=== PATIENT | male | born 1990 | race Caucasian/White ===

== ENCOUNTER → 2020-10-06 15:32 | Outpatient (CLI) | payer OTHER, SELFPAY ==
[2014-12-29 21:24] VITALS: BMI 29.8
--- NOTE | 2020-10-06 15:39 | RAD_ITS ---
STUDY: X-RAY - LEFT WRIST REASON FOR EXAM: Male, 30 years old. Wrist pain. TECHNIQUE: 3 view(s) of the wrist were obtained. COMPARISON: None. FINDINGS: Normal visualized distal radius and ulna. Normal radiocarpal articulation. Normal distal radioulnar articulation. Normal carpal bones. Normal carpal articulations. Normal carpometacarpal articulation of the thumb. Normal second through fifth carpometacarpal articulations. Normal visualized metacarpal bones. The soft tissue structures are unremarkable. RAD/Wrist min 3 Views IMPRESSION: Normal x-ray examination of the wrist. Electronically Signed: Henry Olson MD at 14:34 EDT , Service support ,
--- NOTE | 2020-10-06 15:39 | RAD_ITS ---
STUDY: X-RAY - LEFT HAND REASON FOR EXAM: Male, 30 years old. Pain. TECHNIQUE: 3 view(s) of the hand. COMPARISON: None. FINDINGS: Normal radiocarpal articulation. Normal distal radioulnar joint. Normal visualized carpal bones. Normal carpal articulations Normal carpometacarpal articulation of the thumb. Normal second through fifth carpometacarpal joints. Normal metacarpi. Normal metacarpophalangeal joint of the thumb. Normal interphalangeal joint of the thumb. Normal proximal and distal phalanges of the thumb. Normal metacarpophalangeal joints of the second through fifth fingers. Normal proximal and distal interphalangeal joints of the second through fifth fingers. Normal phalanges of the second through fifth fingers. The soft tissue structures are unremarkable. RAD/Hand Min 3 Views IMPRESSION: Normal x-ray examination of the hand. Electronically Signed: Henry Olson MD at 14:34 EDT , Service support ,
== END ==
PROVIDERS: PCP Family Medicine; Referring Provider Family Medicine; Visit Provider Family Medicine
DX: M25.532 Pain in left wrist (principal)
CPT/HCPCS: 73110; 73130

== ENCOUNTER → 2022-10-06 | Outpatient (CLI) | payer OTHER, SELFPAY ==
[2022-10-06 10:54] LABS: Erythrocyte Sedimentation Rate < 1 mm/hr (0-20)
[2022-10-06 10:56] LABS: Absolute Neutrophil Count 3.2 X10^3/uL (2.0-7.7); Basophil# 0.04 X10^3/uL; Basophil% 0.7 % (0-1); Eosinophil# 0.05 X10^3/uL; Eosinophils% 0.9 % (0-5); Hematocrit 50.6 % (40-54); Hemoglobin 17.1 g/dL (13.0-16.5); Lymphocyte % 35.9 % (19-41); Mean Corp Hgb Conc 33.8 g/dL (32-36); Mean Corpuscular Hgb 28.5 pg (27.0-32.0); Mean Corpuscular Volume 84.3 fL (80-94); Monocyte# 0.46 X10^3/uL; Monocyte% 7.9 % (0-10); NRBC Flagged by Analyzer 0 % (0-5); Neutrophil # 3.19 X10^3/uL (2.7-7.7); Neutrophil % 54.4 % (47-70); Platelet Count 211 K/mm3 (150-450); RBC Distribution Width CV 12.8 % (11.6-14.6); RBC Distribution Width SD 39.2 fl (35.1-43.9); White Blood Count 5.9 K/mm3 (4.4-11.0)
[2022-10-06 11:09] LABS: ALB/GLOB Ratio 1.3 RATIO (0.9-2.4); AST(SGOT) 53 U/L (15-37); Alanine Aminotransfer ALT/SGPT 90 U/L (16-61); Albumin, Serum 4.4 g/dL (3.2-5.0); Alkaline Phosphatase 92 U/L (45-117); Anion Gap 2 (5-15); BUN 16 mg/dL (7-18); BUN/Creat Ratio 15.2 RATIO (10-20); Calcium,Total 9.1 mg/dL (8.5-10.1); Chloride 105 mmol/L (98-107); Cholesterol 163 mg/dL (200); Creatinine, Serum 1.05 mg/dL (0.70-1.30); EST Glomerular Filtration Rate 88 mL/min (>60); Est Glom Filt Rate - Afr Amer 106 mL/min (>60); Globulin 3.4 g/dL (2.2-4.2); Glucose 94 mg/dL (74-106); High Density Lipoprotein 36 mg/dL; Potassium 3.7 mmol/L (3.5-5.1); Protein, Total 7.8 g/dL (6.4-8.2); Sodium Level 137 mmol/L (136-145); Thyroid Stim Hormone (TSH) 1.68 uIU/mL (0.358-3.74); Triglycerides 141 mg/dL; Very Low Density Lipoprotein 28 mg/dL (5-40)
[2022-10-06 11:11] LABS: Amphetamine Urine VISTA NEGATIVE (<1000 ng/mL); Barbiturate Urine VISTA NEGATIVE (< 200 ng/mL); Benzodiazepine Urine VISTA NEGATIVE (< 200 ng/mL); Cocaine Urine VISTA NEGATIVE (< 300 ng/mL); Ecstacy Urine VISTA NEGATIVE (< 500 ng/mL); Methadone Urine VISTA NEGATIVE (< 300 ng/mL); PCP Urine VISTA NEGATIVE (< 25 ng/mL); THC Urine VISTA NEGATIVE (< 50 ng/mL); Vista UDS pH Range 7
== END | disposition home or self-care (01) ==
LOC: MFPLAB 08:37
PROVIDERS: PCP Family Medicine; Referring Provider Family Medicine; Visit Provider Family Medicine
DX: G45.4 Transient global amnesia (principal)
CPT/HCPCS: 36415; 80053; 80061; 80307; 84443; 85025; 85652

== ENCOUNTER → 2023-02-04 | Outpatient (CLI) | payer OTHER, SELFPAY | END | disposition home or self-care (01) | PROVIDERS: PCP Family Medicine; Referring Provider Family Medicine; Visit Provider Family Medicine | DX: G45.4 Transient global amnesia (principal) | CPT/HCPCS: 95819 ==

== ENCOUNTER → 2023-08-29 | Outpatient (CLI) | payer OTHER, SELFPAY ==
--- OUTSIDE RECORDS SUMMARY | 2023-08-29 08:49 | XMS RPT_ITS | CCD ---
Author Name Unknown Address [address] [place] [address] Organization [facility] Care Team Providers Care Commercial [facility] Manager Name Role Phone Wayne Henderson MD Primary Care Provider Jaqueline Galeano MD Primary Care Provider JAQUELINE GALEANO Primary Care UnavailJAQUELINE Moore Referring JAQUELINE Freeman Primary Care Unavailabl e Medications Current Medications Medication Drug Class(es) Dates Sig (Normalized) Sig (Original) ondansetron 4 mg disintegrating oral tablet (1 source) Serotonin-3 Receptor Antagonist Start: 08-09-2022 End: 08-16-2022 take 1 tablet by mouth every eight hours as needed for nausea ondansetron orally disintegrating (ZOFRAN ODT) 4 mg disintegrating tablet Indications: Nausea and vomiting, unspecified vomiting type Take 1 tablet by mouth every 8 hours as needed for nausea/vomiting for up to 7 days. 21 tablet 0 08/09/2022 08/16/2022 Active Completed/Discontinued Medications Medication Drug Class(es) Dates Sig (Normalized) Sig (Original) lamoTRIgine 25 mg oral tablet (1 source) Mood Stabilizer, Anti-epileptic Agent Start: 08-02-2023 lamoTRIgine (LAMICTAL) 25 mg tablet Problems Problem Classification Problem Date Documented Da te Episodic/Chronic Inflammation; infection of eye (except that caused by tuberculosis or sexually transmitteddisease) (1 source) Acute conjunctivitis of bilateral eyes; Translations: [Unspecified acute conjunctivitis, bilateral] 08-10-2023 Episodic Nausea and vomiting (2 sources) Nausea; Translations: [Nausea] Episodic Other upper respiratory infections (1 source) Sore throat symptom; Translations: [Acute pharyngitis, unspecified] Episodic Results Test Name Value Interpretation Reference Range Facil ity Vital Signs Date Time Vital Sign Value Performing Clinician Jani harp 08-10-2023 07:44-0500 Body temperature 97.59 [degF] Ang Gardner MD Work Phone: [facility] 08-10-2023 07:44-0500 Body weight 109.86 kg Ang Gardner MD Work Phone: [facility] 08-10-2023 07:44-0500 Diastolic blood pressure 78 mm[Hg] Ang Gardner MD Work Phone: [facility] 08-10-2023 07:44-0500 Heart rate 65 /min Ang Gardner MD Work Phone: [facility] 08-10-2023 07:44-0500 Respiratory rate 16 /min Ang Gardner MD Work Phone: [facility] 08-10-2023 07:44-0500 SaO2% (BldA) [Mass fraction] 96 % Ang Gardner MD Work Phone: [facility] 08-10-2023 07:44-0500 Systolic blood pressure 112 mm[Hg] Ang Gardner MD Work Phone: [facility] 08-09-2022 08:27-0500 Body temperature 98.1 [degF] Maria Esther Orellana APRN.PRESSURE TESTER OPERATOR Work Phone: [facility] 08-09-2022 08:27-0500 Body weight 102.97 kg Maria Esther Orellana APRN.PRESSURE TESTER OPERATOR Work Phone: [facility] 08-09-2022 08:27-0500 Diastolic blood pressure 82 mm[Hg] Maria Esther Orellana APRN.PRESSURE TESTER OPERATOR Work Phone: [facility] 08-09-2022 08:27-0500 Heart rate 86 /min Maria Esther Orellana APRN.PRESSURE TESTER OPERATOR Work Phone: [facility] 08-09-2022 08:27-0500 Respiratory rate 18 /min Maria Esther Orellana APRN.PRESSURE TESTER OPERATOR Work Phone: [facility] 08-09-2022 08:27-0500 SaO2% (BldA) [Mass fraction] 98 % Maria Esther Orellana APRN.PRESSURE TESTER OPERATOR Work Phone: [facility] 08-09-2022 08:27-0500 Systolic blood pressure 116 mm[Hg] Maria Esther Orellana APRN.CNP Work Phone: [facility] Encounters Encounter Date Encounter Type Care Provider Facility Start: 08-10-2023 End: 08-10-2023 ambulatory JAQUELINE GALEANO Facility:[facility] Start: 08-10-2023 End: 08-10-2023 Patient encounter procedure Ang Gardner MD Work Phone: [facility] Procedures Date Procedure Procedure Detail Performing Clinician Start: 08-09-2022 STREP A MOLECULAR (POC) Maria Esther Orellana APRN.PRESSURE TESTER OPERATOR Work Phone: Plan of Treatment Date Care Activity Detail Author Start: 09-02-2029 Urine microalbumin profile DTa P,Tdap,Td Vaccine (10 - Td or Tdap) [facility] Start: 01-10-2024 Urine microalbumin profile DTA P,TDAP,TD (7 - Td or Tdap) [facility] Start: 06-27-2023 Depression Assessment Depression Ass [facility] Start: 2023 Covid-19 Vaccine ( season) Covid-19 Vaccine ( season) [facility] Start: 2023 Influenza vaccination Influenza Vacc ine (#1) [facility] Start: 06-27-2022 [facility] Start: 2022 Influenza vaccination INFLUENZA (#1) [facility] Start: 12-16-2020 COVID-19 VACCINE (3 - Booster for Pfizer series) COVID-19 VACCINE (3 - Booster for Pfizer series) [facility] Start: 02-24-2010 HEPATITIS C SCREENING HEPATITIS C [facility] Start: 02-24-2010 Hepatitis C screening Hepatitis C [facility] Start: 02-24-2010 HIV SCREENING HIV SCREENING [facility] Start: 02-24-2010 HIV screening HIV Screening [facility] Immunizations Immunization Date Immunization Notes Care Provider Fa cility 01-09-2014 tetanus toxoid, redu godfrey diphtheria toxoid, and acellular pertussis vaccine, adsorbed Maria Esther Orellana APRN.[facility] Work Phone: [facility] Work Phone: 01-07-2011 hepatitis B vaccine, adult dosage Maria Esther Orellana APRN.PRESSURE TESTER OPERATOR Work Phone: [facility] Work Phone: 12-16-2004 measles virus vaccine Frankini bang Orellana APRN.PRESSURE TESTER OPERATOR Work Phone: [facility] Work Phone: 03-15-1997 trivalent poliovirus vaccine, live, oral Maria Esther Orellana APRN.[facility] Work Phone: [facility] Work Phone: 12-27-1996 varicella virus vaccine Racquel kathy Orellana APRN.[facility] Work Phone: [facility] Work Phone: 12-13-1996 diphtheria, tetanus toxoids and acellular pertussis vaccine Maria Esther Orellana APRN.PRESSURE TESTER OPERATOR Work Phone: [facility] Work Phone: 09-04-1993 diphtheria, tetanus toxoids and acellular pertussis vaccine Maria Esther Orellana APRN.PRESSURE TESTER OPERATOR Work Phone: [facility] Work Phone: 09-04-1993 trivalent poliovirus vaccine, live, oral Maria Esther Orellana APRN.PRESSURE TESTER OPERATOR Work Phone: [facility] Work Phone: 06-16-1993 measles virus vaccine Frankini bang Orellana APRN.PRESSURE TESTER OPERATOR Work Phone: [facility] Work Phone: 06-16-1993 mumps virus vaccine Claire Orellana APRN.PRESSURE TESTER OPERATOR Work Phone: [facility] Work Phone: 06-16-1993 rubella virus vaccine Frankini bang Orellana APRN.PRESSURE TESTER OPERATOR Work Phone: [facility] Work Phone: 05-28-1993 haemophilus influenz ae type b vaccine, HbOC conjugate Maria Estherbang Orellana APRN.[facility] Work Phone: [facility] Work Phone: 04-11-1993 hepatitis B vaccine, pediatric or pediatric/adolescent dosage Maria Esther Esteban JAVA CONSULTANT.[facility] Work Phone: [facility] Work Phone: 1992 hepatitis B vaccine, pediatric or pediatric/adolescent dosage Maria Esther Esteban JAVA CONSULTANT.[facility] Work Phone: [facility] Work Phone: 1992 diphtheria, tetanus toxoids and pertussis vaccine Maria Estherbang Orellana APRN.[facility] Work Phone: [facility] Work Phone: 1992 haemophilus influenz ae type b vaccine, HbOC conjugate Maria Estherbang Orellana APRN.[facility] Work Phone: [facility] Work Phone: 1992 diphtheria, tetanus toxoids and pertussis vaccine Maria Estherbang Orellana APRN.[facility] Work Phone: [facility] Work Phone: 1992 trivalent poliovirus vaccine, live, oral Maria Estherbang Orellana APRN.[facility] Work Phone: [facility] Work Phone: 1992 haemophilus influenz ae type b vaccine, HbOC conjugate Maria Estherbang Orellana APRN.PRESSURE TESTER OPERATOR Work Phone: [facility] Work Phone: 1992 diphtheria, tetanus toxoids and pertussis vaccine Maria Estherbang Orellana APRN.[facility] Work Phone: [facility] Work Phone: 1992 haemophilus influenz ae type b vaccine, HbOC conjugate Maria Esther James JAVA CONSULTANT.[facility] Work Phone: [facility] Work Phone: 1992 trivalent poliovirus vaccine, live, oral Maria Esther Orellana APRN.PRESSURE TESTER OPERATOR Work Phone: [facility] Work Phone: 1992 hepatitis B vaccine, pediatric or pediatric/adolescent dosage Maria Esther Orellana APRN.PRESSURE TESTER OPERATOR Work Phone: [facility] Work Phone: Payers Date Payer Category Payer Private Health Insurance [employer] [id number] 2022-Present [phone] [address] [place] [address] Open Access [id number] 2022 Private Health Insurance [id number] Social History Date Type Detail Facility Start: 08-09-2022 [facility] Never smoked tobacco [facility] Start: 08-09-2022 Tobacco use and exposure Smoke less tobacco non-user [facility] Start: 08-09-2022 End: 08-10-2023 Alcohol intake Current drinker of alcohol (finding) [facility] Start: 1990 Sex Assigned At Not on file [facility] Start: 06-03-2020 End: 08-10-2023 History of Social function [facility] Start: 06-03-2020 End: 08-10-2023 Tobacco use panel [facility] National Score (1-10 0), lower number is lower risk Not on file [facility] Progress note 08-10-2023 Note Date & Type Note Facility 08-10-2023 Note HNO ID: [id number] Author: ANG GARDNER MD Service: ? Author Type: Physician Type: Progress Notes Filed: 08/10/2023 08:15 Note Text: Patient presents with: Eye Problem: Bilateral red and irritated eyes x 1 day HPI: Feeling eye irritation since last night. Toddler had pink eye last week. Positive symptoms: eye irritation (R>L), AM crust, rhinorrhea, Negative symptoms: Cough, Sore throat, Nasal Congestion, Fever, vision change, OTC: antibiotic drops MEDICATIONS: Current Outpatient Medications Medication Sig lamoTRIgine (LAMICTAL) 25 mg tablet No current facility-administered medications for this visit. ALLERGIES: ALLERGIES No Known Allergies VITALS: BP 112/78 Pulse 65 Temp 36.4 ?C (97.6 ?F) (Tympanic) Resp 16 Wt 109.9 kg (242 lb 3.2 oz) SpO2 96% BMI 34.26 kg/m? PHYSICAL EXAM: GEN: Pleasant, in no acute distress. HEENT: PERRL, EOMI, conjunctiva injected (R>L) Ears: canals occluded by cerumen Sinuses: non-tender frontal sinus, non-tender maxillary sinuses Throat: moist mucous membranes, no erythema, no exudate Neck: supple, no thyromegaly, no lymphadenopathy HEART: regular rate and rhythm, no murmurs LUNGS: clear to auscultation, no wheezes or crackles, no increased WOB ASSESSMENT/PLAN: 1. Acute conjunctivitis of both eyes, unspecified acute conjunctivitis type - ICD9: 372.00, ICD10: H10.33 Obion eye discussed. Infectious conjunctivitis is most commonly caused by cold viruses and is a self-limited condition which usually resolves in about a week. Bacterial conjunctivitis usually follows a similar course, but symptoms and contagiousness are responsive to antibiotics. Bacterial infection can rarely progress to more serious infection. Hand hygiene with washing or refining machine operator is important to reduce spread of the infection. Seek re-evaluation for high fever, increasing periocular redness/swelling, eye pain, or vision change as these can be symptoms of serious infection. - POLYMYXIN B SULFATE 10,000 UNIT-TRIMETHOPRIM 1 MG/ML EYE DROPS Ang Gardner MD [facility] History of Present illness Narrative 08-10-2023 Ang Gardner MD - 08/10/2023 7:57 AM EST Note Date & Type Note Facility 08-10-2023 History of Presen t illness Narrative Patient presents with: Eye Problem: Bilateral red and irritated eyes x 1 day HPI: Feeling eye irritation since last night. Toddler had pink eye last week. Positive symptoms: eye irritation (R>L), AM crust, rhinorrhea, Negative symptoms: Cough, Sore throat, Nasal Congestion, Fever, vision change, OTC: antibiotic drops MEDICATIONS: Current Outpatient Medications Medication Sig lamoTRIgine (LAMICTAL) 25 mg tablet No current facility-administered medications for this visit. ALLERGIES: ALLERGIES No Known Allergies VITALS: BP 112/78 Pulse 65 Temp 36.4 C (97.6 F) (Tympanic) Resp 16 Wt 109.9 kg (242 lb 3.2 oz) SpO2 96% BMI 34.26 kg/m PHYSICAL EXAM: GEN: Pleasant, in no acute distress. HEENT: PERRL, EOMI, conjunctiva injected (R>L) Ears: canals occluded by cerumen Sinuses: non-tender frontal sinus, non-tender maxillary sinuses Throat: moist mucous membranes, no erythema, no exudate Neck: supple, no thyromegaly, no lymphadenopathy HEART: regular rate and rhythm, no murmurs LUNGS: clear to auscultation, no wheezes or crackles, no increased WOB ASSESSMENT/PLAN: 1. Acute conjunctivitis of both eyes, unspecified acute conjunctivitis type - ICD9: 372.00, ICD10: H10.33 Obion eye discussed. Infectious conjunctivitis is most commonly caused by cold viruses and is a self-limited condition which usually resolves in about a week. Bacterial conjunctivitis usually follows a similar course, but symptoms and contagiousness are responsive to antibiotics. Bacterial infection can rarely progress to more serious infection. Hand hygiene with washing or refining machine operator is important to reduce spread of the infection. Seek re-evaluation for high fever, increasing periocular redness/swelling, eye pain, or vision change as these can be symptoms of serious infection. - POLYMYXIN B SULFATE 10,000 UNIT-TRIMETHOPRIM 1 MG/ML EYE DROPS Ang Gardner MD documented in this encounter [facility] Progress note 01-06-2023 Note Date & Type Note Facility 01-06-2023 Note HNO ID: [id number] Author: RT Kasey(R) Service: ? Author Type: Technologist Type: Progress Notes Filed: 01/06/2023 8:09 AM Note Text: Radiology Service Progress Note PATIENT NAME: Jazlyn Hickman DATE OF SERVICE: January 06, 2023 TIME: 8:08 AM PATIENT IDENTITY VERIFICATION COMPLETED USING TWO (2) IDENTIFIERS: Name and Date of confirmed by patient verbally. FALL SCREENING: Has the patient had 2 falls in the last year or 1 fall with injury or currently using an Ambulatory Assistive Device (Walker, Cane, Wheelchair, Crutches, etc.)? No PATIENT GENDER DATA: Male PATIENT RELEVANT IMPLANT DATA REVIEWED: Yes RADIOLOGY DEPARTMENT: MR; Exam(s) Completed: Head: Routine Brain PERIPHERAL IV DATA: Not applicable SIGNED BY: RT Kasey(R) January 06, 2023 8:08 AM [facility] History of Present illness Narrative 08-09-2022 Maria Esther Orellana APRN.PRESSURE TESTER OPERATOR - 08/09/2022 8:35 AM EST Note Date & Type Note Facility 08-09-2022 History of Presen t illness Narrative CC: Patient presents with: Nausea & Vomiting: NVD, fever, chills, bodyaches x4 days Niece had the same thing. HPI: Jazlyn Hickman is a 32 year old male who presents to the office with complaint of fever for a few days. Symptoms are staying the same. Associated symptoms includes nausea, vomiting , and chills. Denies ear pain, cough, and diarrhea. Treatments tried include nothing so far. with no relief of symptoms. Sick contacts: unknown. History of asthma, frequent episodes of bronchitis, chronic bronchitis, bronchiectasis or COPD: No Smoker: No Seasonal/environmental allergies: No The ROS is otherwise negative. The patient's pmh, medications, allergies, and past visits are reviewed. PHYSICAL EXAM: BP 116/82 Pulse 86 Temp 36.7 C (98.1 F) Resp 18 Wt 103 kg (227 lb) SpO2 98% BMI 32.11 kg/m General appearance: alert, cooperative, pleasant, in no acute distress Head: Normocephalic Eyes: EOM's intact, conjunctiva pink and moist, no icterus, sclera white, non-injected Ears: Right ear: External ear/canal- Normal, TM - clear with good landmarks. Left ear: External ear/canal- Normal, TM - clear with good landmarks Oropharynx:mild erythema, without exudates present Heart: Negative. RRR without obvious murmur, gallop, or rubs. No ectopy. Lungs: clear to auscultation, without rales or wheeze, good air exchange PAST MEDICAL HISTORY Diagnosis Date NEGATIVE MEDICAL HISTORY PAST SURGICAL HISTORY Procedure Laterality Date NONE ALLERGIES Patient has no known allergies. MEDICATIONS No prescriptions on file. FAMILY HISTORY Problem Relation Age of Onset Diabetes Father None Mother Social History Tobacco Use Smoking status: Never Smokeless tobacco: Never Substance Use Topics Alcohol use: Yes Drug use: No ASSESSMENT/PLAN: 1. Sore throat - ICD9: 462, ICD10: J02.9 (primary diagnosis) Differential strep ruled out - STREP A MOLECULAR (POC) - neg 2. Nausea - ICD9: 787.02, ICD10: R11.0 3. Nausea and vomiting, unspecified vomiting type - ICD9: 787.01, ICD10: R11.2 - ONDANSETRON 4 MG DISINTEGRATING TABLET No viral testing at this time. Prescription instructions reviewed with patient as applicable. Potential red flag symptoms discussed with the patient. Reviewed appropriate action plan to take if red flag symptoms occur. Patient agreeable to treatment plan. Maria Esther Orellana APRN.ERIS documented in this encounter [facility] Evaluation note Note Date & Type Note Facility documented in this encounter [facility] Evaluation note Note Date & Type Note Facility documented in this encounter [facility] Summary Purpose Family History No Family History Records Found Advance Directives No Advanced Directives Records Found Additional Source Comments Source Comments (unrecognize d section and content) In the event this informatio n is protected by the Federal Confidentiality of Alcohol and Drug Abuse Patient Records regulations: The Federal rules restrict any use of the information to criminally investigate or prosecute any alcohol or drug abuse patient.[facility] the event this information is protected by the Federal Confidentiality of Alcohol and Drug Abuse Patient Records regulations: The Federal rules restrict any use of the information to criminally investigate or prosecute any alcohol or drug abuse patient.[facility] Reason for Visit (unrecogniz ed section and content) Reason Comments Eye Problem Bilateral red and ir ritated eyes x 1 day Care Teams (unrecognized sec tion and content) Commercial Center Manager Relationship Specialty Start Date End Date Jaqueline Galeano MD [address] [place] [id number] PCP - General Family Medicine 12/03/22 (unrecognized sect ion and content) No Status Records Found INFORMATION SOURCE (unrecogn ized section and content) FOR RECORDS PERTAINING TO PATIENTS WHO ARE OR HAVE BEEN ENROLLED IN A CHEMICAL DEPENDENCY/SUBSTANCEABUSE PROGRAM, SOME INFORMATION MAY BE OMITTED. This clinical summary was aggregated from multiple sources. Caution should be exercised in using it in the provision of clinical care. This summary normalizes information from multiple sources, and as a consequence, information in this document may materially change the coding, format and clinical context of patient data. In addition, data may be omitted in some cases. CLINICAL DECISIONS SHOULD BE BASED ON THE PRIMARY CLINICAL RECORDS. [facility]. provides no warranty or guarantee of the accuracy or completeness of information in this document.
== END | disposition home or self-care (01) ==
PROVIDERS: PCP Family Medicine; Referring Provider Psychiatry & Neurology Neurology; Visit Provider Psychiatry & Neurology Neurology
DX: G40.909 Epilepsy, unspecified, not intractable, without status epilepticus (principal)
CPT/HCPCS: 95819

== ENCOUNTER → 2024-02-08 | Outpatient (CLI) | payer OTHER, SELFPAY ==
[2024-02-08 10:10] LABS: Absolute Lymphocyte Count 1.68 X10^3/uL (0.83-4.51); Absolute Neutrophil Count 3.7 X10^3/uL (2.0-7.7); Basophil# 0.05 X10^3/uL; Basophil% 0.9 % (0-1); Eosinophil# 0.04 X10^3/uL; Eosinophils% 0.7 % (0-5); Hematocrit 49.1 % (40-54); Hemoglobin 16.5 g/dL (13.0-16.5); Lymphocyte # 1.68 X10^3/ul (0.83-4.51); Lymphocyte % 28.7 % (19-41); Mean Corp Hgb Conc 33.6 g/dL (32-36); Mean Corpuscular Hgb 28.1 pg (27.0-32.0); Mean Corpuscular Volume 83.6 fL (80-94); Mean Platelet Vol. 10.2 fl (6.2-12.0); Monocyte# 0.33 X10^3/uL; Monocyte% 5.6 % (0-10); NRBC Flagged by Analyzer 0 % (0-5); Neutrophil # 3.72 X10^3/uL (2.7-7.7); Neutrophil % 63.6 % (47-70); Platelet Count 299 K/mm3 (150-450); RBC Distribution Width CV 12.6 % (11.6-14.6); RBC Distribution Width SD 38.2 fl (35.1-43.9); Red Blood Count 5.87 M/mm3 (4.6-6.2); White Blood Count 5.9 K/mm3 (4.4-11.0)
[2024-02-08 10:24] LABS: AST(SGOT) 78 U/L (15-37); Alanine Aminotransfer ALT/SGPT 133 U/L (16-61); Albumin, Serum 4.1 g/dL (3.2-5.0); Alkaline Phosphatase 113 U/L (45-117); Anion Gap 5 (5-15); BUN 20 mg/dL (7-18); BUN/Creat Ratio 17.9 RATIO (10-20); Calcium,Total 9.2 mg/dL (8.5-10.1); Chloride 105 mmol/L (98-107); Cholesterol 174 mg/dL (200); Creatinine, Serum 1.12 mg/dL (0.70-1.30); EST Glomerular Filtration Rate 81 mL/min (>60); Est Glom Filt Rate - Afr Amer 98 mL/min (>60); Glucose 98 mg/dL (74-106); High Density Lipoprotein 30 mg/dL; Potassium 4.3 mmol/L (3.5-5.1); Protein, Total 8.1 g/dL (6.4-8.2); Sodium Level 139 mmol/L (136-145); Triglycerides 144 mg/dL; Very Low Density Lipoprotein 29 mg/dL (5-40)
[2024-02-09 04:08] LABS: GGTP 53 IU/L (0-65)
[2024-02-10 16:10] LABS: Lamotrigine (Lamictal) Level < 1.0 ug/mL (2.0-20.0)
== END | disposition home or self-care (01) ==
LOC: MFPLAB 07:57
PROVIDERS: Psychiatry & Neurology Neurology; PCP Family Medicine; Visit Provider Family Medicine
DX: R79.89 Other specified abnormal findings of blood chemistry (principal); G40.209 Localization-related (focal) (partial) symptomatic epilepsy and epileptic syndromes with complex partial seizures, not intractable, without status epilepticus; Z13.220 Encounter for screening for lipoid disorders
CPT/HCPCS: 36415; 80053; 80061; 82140; 82542; 82977; 85025

== ENCOUNTER → 2024-12-10 | Outpatient (CLI) | payer OTHER, MEDICAID, SELFPAY ==
[2024-12-10 10:48] LABS: Hematocrit 47.5 % (40-54); Hemoglobin 16.5 g/dL (13.0-16.5); Mean Corp Hgb Conc 34.7 g/dL (32-36); Mean Corpuscular Hgb 28.6 pg (27.0-32.0); Mean Corpuscular Volume 82.3 fL (80-94); Platelet Count 186 K/mm3 (150-450); RBC Distribution Width CV 12.5 % (11.6-14.6); RBC Distribution Width SD 37.6 fl (35.1-43.9); Red Blood Count 5.77 M/mm3 (4.6-6.2); White Blood Count 4.9 K/mm3 (4.4-11.0)
[2024-12-10 11:04] LABS: Ammonia 34.1 umol/L (16-60)
[2024-12-10 18:19] LABS: ALB/GLOB Ratio 1.8 RATIO (0.9-2.4); AST(SGOT) 43 U/L (<=37); Alanine Aminotransfer ALT/SGPT 37 U/L (<=46); Albumin, Serum 4.8 g/dL (3.5-5.0); Alkaline Phosphatase 93 U/L (40-129); Anion Gap 12 (5-15); BUN 19 mg/dL (4-19); BUN/Creat Ratio 17.8 RATIO (10-20); Calcium,Total 9.7 mg/dL (7.6-11.0); Carbon Dioxide 25.8 mmol/L (21.0-32.0); Chloride 104 mmol/L (98-108); Creatinine, Serum 1.09 mg/dL (0.70-1.20); EST Glomerular Filtration Rate 92 (>60); Globulin 2.7 g/dL (2.2-4.2); Glucose 90 mg/dL (70-99); Potassium 3.9 mmol/L (3.3-5.1); Protein, Total 7.4 g/dL (5.9-8.4); Sodium Level 142 mmol/L (133-145)
[2024-12-11 15:52] LABS: Total Bilirubin 0.51 mg/dL (0.00-1.30)
[2024-12-12 13:08] LABS: Lamotrigine (Lamictal) Level < 1.0 ug/mL (2.0-20.0)
== END | disposition home or self-care (01) ==
LOC: MFPLAB 08:33
PROVIDERS: PCP Family Medicine; Visit Provider Psychiatry & Neurology Neurology
DX: G40.909 Epilepsy, unspecified, not intractable, without status epilepticus (principal)
CPT/HCPCS: 36415; 80053; 82140; 82542; 85027